=== PATIENT | male | born 1990 | race Caucasian/White ===

== ENCOUNTER 2018-12-17 23:44 | Emergency (ER) | payer SELFPAY ==
[~2018-12-17] VITALS: Ht 165.1 cm; Wt 93.0 kg
[2018-12-18] MEDS ORDERED: IBUPROFEN 600MG TABLET PO ONE (02:00)
[2018-12-18 03:29] VITALS: BP 129/68
== END 2018-12-18 03:30 | disposition home or self-care (01) ==
LOC: ER 23:44
DX: S43.402A Unspecified sprain of left shoulder joint, initial encounter (principal); X58.XXXA Exposure to other specified factors, initial encounter; Y93.89 Activity, other specified; Y92.89 Other specified places as the place of occurrence of the external cause; R03.0 Elevated blood-pressure reading, without diagnosis of hypertension; F12.90 Cannabis use, unspecified, uncomplicated
CPT/HCPCS: 73030; 99283; A4565

== ENCOUNTER 2021-07-02 19:35 | Emergency (ER) | payer MEDICAID ==
[~2021-07-02] VITALS: Ht 165.1 cm; Wt 100.0 kg
[2021-07-02 19:51] VITALS: BP 130/78
== END 2021-07-02 20:55 | disposition home or self-care (01) ==
LOC: ER 19:35
DX: L05.01 Pilonidal cyst with abscess (principal); E78.00 Pure hypercholesterolemia, unspecified; F12.10 Cannabis abuse, uncomplicated
CPT/HCPCS: 99281

== ENCOUNTER 2022-01-17 15:52 | Emergency (ER) | payer MEDICARE, MEDICAID ==
[~2022-01-17] VITALS: Ht 165.1 cm; Wt 101.0 kg
[2022-01-17] MEDS ORDERED: SODIUM CHLORIDE 0.9% 1,000 ML IV ONE (23:15)
[2022-01-17] MEDS ORDERED: IBUPROFEN 600MG TABLET PO ONE (23:15)
[2022-01-17] MEDS ORDERED: ONDANSETRON HCL 4MG/2ML INJ IV ONE (23:30)
[2022-01-17 23:55] LABS: BASOPHILS % 0.5 % (0.0-2.0); HEMATOCRIT. 46.6 % (42.0-52.0); HEMOGLOBIN. 16.4 g/dL (14.0-18.0); LYMPHOCYTES % 20.9 % (20.0-50.0); MEAN CORPUSCULAR VOLUME 82.2 fL (80.0-94.0); MEAN PLATELET VOLUME 7.8 fl (7.4-10.4); MONOCYTES % 8.1 % (2.0-8.0); NEUTROPHILS % 69.5 % (40.0-76.0); PLATELET 217 x1000/uL (130-400); RED BLOOD CELL COUNT 5.67 mill/uL (4.7-6.1)
[2022-01-17 23:58] LABS: CHLORIDE 98 mEq/L (98-107)
[2022-01-18 00:10] LABS: CLARITY URINE CLEAR (CLEAR); COLOR URINE DARK YELLOW (YELLOW); KETONES URINE TRACE (NEGATIVE); LEUKOCYTE ESTERASE URINE NEGATIVE (NEGATIVE); NITRITE URINE NEGATIVE (NEGATIVE); OCCULT BLOOD URINE NEGATIVE (NEGATIVE); PROTEIN URINE TRACE (NEGATIVE); SPECIFIC GRAVITY URINE 1.028 (1.005-1.030)
[2022-01-18 01:56] VITALS: BP 121/78
[2022-01-18] MEDS ORDERED: POTASSIUM CHLORIDE 20MEQ TABLET SR PO NR (02:00)
== END 2022-01-18 02:43 | disposition home or self-care (01) ==
LOC: ER 15:52
DX: R19.7 Diarrhea, unspecified (principal); R11.2 Nausea with vomiting, unspecified; R50.9 Fever, unspecified; E87.6 Hypokalemia; R03.0 Elevated blood-pressure reading, without diagnosis of hypertension; H91.3 Deaf nonspeaking, not elsewhere classified
CPT/HCPCS: 36415; 80053; 81003; 83690; 85025; 96361; 96374; 99283; J2405; J7030

== ENCOUNTER 2025-03-05 14:53 | Emergency (ER) | payer MEDICARE, MEDICAID ==
[~2025-03-05] VITALS: Ht 172.7 cm; Wt 82.0 kg
[2025-03-05 15:06] VITALS: O2SAT 100
[2025-03-05] MEDS: ACETAMINOPHEN 325MG TABLET PO ONE (17:47)
[2025-03-05] MEDS ORDERED: ACET-3800 MT (19:13)
[2025-03-05 19:41] VITALS: BP 134/89; PULSE 78; RESP 18; TEMP 36.8; O2SAT 98
== END 2025-03-05 19:41 | disposition home or self-care (01) ==
LOC: ER 14:53
DX: M25.562 Pain in left knee (principal); M25.532 Pain in left wrist; M25.531 Pain in right wrist; J45.909 Unspecified asthma, uncomplicated; E78.00 Pure hypercholesterolemia, unspecified; Z91.013 Allergy to seafood; Z98.890 Other specified postprocedural states
CPT/HCPCS: 73110; 73562; 73700; 99284

== ENCOUNTER 2025-03-10 20:07 | Emergency (ER) | payer BC, MEDICAID ==
[~2025-03-10] VITALS: Ht 165.1 cm; Wt 82.3 kg
[~2025-03-10 20:07] MED LIST: ACET-3800 MT
[2025-03-10 20:09] VITALS: O2SAT 99
[2025-03-10] MEDS: KETOROLAC 15MG/ML VIAL IM ONE (22:54)
[2025-03-10] MEDS: ACETAMINOPHEN 325MG TABLET PO ONE (22:54)
[2025-03-11 01:20] VITALS: BP 122/76; PULSE 73; RESP 16; TEMP 36.8; O2SAT 100
== END 2025-03-11 01:22 | disposition home or self-care (01) ==
LOC: ER 20:20
DX: M25.531 Pain in right wrist (principal); E78.00 Pure hypercholesterolemia, unspecified; J45.909 Unspecified asthma, uncomplicated; Z79.899 Other long term (current) drug therapy
CPT/HCPCS: 99284; 73110; 73130; 96372; J1885